=== PATIENT | male | born 2000 | race Two or more races ===

== ENCOUNTER 2024-03-04 21:50 | Emergency (ER) | payer OTHER ==
[~2024-03-04] VITALS: Ht 175.3 cm; Wt 79.8 kg
[2024-03-04 21:52] VITALS: BP 135/73; TEMP 98.2; O2SAT 95
== END 2024-03-04 23:14 | disposition left against medical advice (07) ==
LOC: M ED 21:50
DX: Z53.21 Procedure and treatment not carried out due to patient leaving prior to being seen by health care provider (principal)